=== PATIENT | male | born 1945 | race Hispanic/Latino ===

== ENCOUNTER 2020-10-04 19:01 | Emergency (ER) | payer MEDICAID, SELFPAY ==
--- NOTE | ~2020-10-04 | CT_ITS ---
EXAMINATION: CT thoracic spine wo con DATE: 10/04/2020 21:31 INDICATION: Thoracic back pain. TECHNIQUE: Computed tomography (CT) of the thoracic spine was performed without intravenous contrast. Automated exposure control and iterative reconstruction technique were employed. The dose-length pro duct was 252.84 mGy-cm. COMPARISON: None FINDINGS: There is 4 degrees dextrocurvature of thoracic spine. There are compression fractures of T9 , T11, T12, and L1 with 3/5, 2/5, 1/5, and 3/5 loss of height, respectively. There is mildly decrease d disc height at T8-T9 through T12-L1. There is multilevel mild facet joint osteoarthritis. There is mild neural foraminal stenosis at multiple levels bilaterally. There is moderate neural foraminal brandon nosis bilaterally at T1-T2 and T9-T10 and on the right at T10-T11. There is mild central canal stenos is at T12-L1. IMPRESSION: 1. Compression fractures of T9, T11, T12, and L1, most likely chronic. 2. Moderate thoracic spondylosis. Reviewed, dictated and finalized at location A.
--- NOTE | ~2020-10-04 | CT_ITS ---
EXAMINATION: CT cervical spine wo con DATE: 10/04/2020 21:31 INDICATION: Neck pain. TECHNIQUE: Computed tomography (CT) of the cervical spine was performed without intravenous contrast. Automated exposure control and iterative reconstruction technique were employed. The dose-length pro duct was 125.30 mGy-cm. COMPARISON: None FINDINGS: There is 4 degrees levocurvature of cervical spine. There is kyphosis of cervical spine. Th ere is 2 mm retrolisthesis of C5 on C6 and C6 on C7. Vertebral body heights are normal. There is torsten rely decreased disc height at C5-C6 and C6-C7. The following disc levels are specifically discussed: C2-C3: There is mild bilateral uncovertebral joint osteoarthritis. There is mild bilateral facet join t osteoarthritis. There is no neural foraminal stenosis. There is no central canal stenosis. C3-C4: There is mild right uncovertebral joint osteoarthritis. There is ankylosis of left uncovertebr al joint with mild hypertrophy. There is mild right facet joint osteoarthritis. There is ankylosis of left facet joint with severe hypertrophy. There is mild bilateral neural foraminal stenosis. There i s no central canal stenosis. C4-C5: There is mild bilateral uncovertebral joint osteoarthritis. There is severe bilateral facet sidra int osteoarthritis. There is mild bilateral neural foraminal stenosis. There is no central canal sten osis. C5-C6: There is severe bilateral uncovertebral joint osteoarthritis. There is moderate bilateral face t joint osteoarthritis. There is mild bilateral neural foraminal stenosis. There is mild central masood l stenosis. C6-C7: There is severe bilateral uncovertebral joint osteoarthritis. There is moderate bilateral face t joint osteoarthritis. There is mild right and moderate left neural foraminal stenosis. There is mil d central canal stenosis. C7-T1: There is no uncovertebral joint osteoarthritis. There is moderate right and severe left facet joint osteoarthritis. There is mild bilateral neural foraminal stenosis. There is no central canal st enosis. IMPRESSION: 1. No fracture. 2. Severe cervical spondylosis. Reviewed, dictated and finalized at location A.
--- NOTE | ~2020-10-04 | CT_ITS ---
EXAMINATION: CT brain wo con DATE: 10/04/2020 19:23 INDICATION: Head injury status post fall. Trauma to the forehead. Hematoma. TECHNIQUE: Computed tomography (CT) of the head was performed without intravenous contrast. The dose- length product was 605.33 mGy-cm. Automated exposure control and iterative reconstruction technique w ere employed. COMPARISON: None FINDINGS: There is a left frontal scalp hematoma. Generalized atrophy. There are scattered moderate p eriventricular and subcortical white matter changes, most likely related to small vessel ischemic dis ease (microangiopathy). No ventriculomegaly or midline shift. There is intracranial atherosclerosis. No acute intracranial hemorrhage, infarction, mass or mass effect. No depressed skull fracture. Paran layne sinuses and mastoids are pneumatized. IMPRESSION: 1. No acute intracranial abnormality. 2: Chronic age-related findings. Reviewed, dictated and finalized at location A.
[2020-10-04 19:07] VITALS: BP 107/87; PULSE 113; RESP 18; TEMP 36.5; O2SAT 100
[2020-10-04 21:04] VITALS: BP 136/91; PULSE 94; RESP 20; O2SAT 100
--- NOTE | 2020-10-04 21:06 | PC.NURSE ---
PT HAS LARGE BRUSE TO FORHEAD AND AROUND BOTH EYES AND NOSE ,FELL MONDAY MORNING .
--- NOTE | 2020-10-04 21:13 | ED.HEATRA ---
HPI - Head Injury General Chief complaint: Head Injury Stated complaint: fall, head inj Time Seen by Provider: 10/04/20 20:48 Source: patient Mode of arrival: ambulatory Limitations: no limitations History of Present Illness HPI Narrative: Patient is a 74-year-old male complaining of head pain, neck pain after a fall yesterday. Patient states that he got out of his bed he tripped and hit his face on furniture. Patient denies any loss of consciousness. Patient was able to stand up and ambulate after the fall. Patient denies any chest, abdomen, back, pelvis, hip or any extremity pain/injury. Severity scale (1-10): 6 Quality: dull Radiation: none Other Injuries: none Associated symptoms: denies other symptoms Review of Systems Review of Systems: All systems reviewed & are unremarkable except as noted in HPI and below Constitutional: Constitutional: Denies body ache(s), Denies chills, Denies excessive sweating, Denies fatigue, Denies fever(s), Denies headache(s), Denies lethargy, Denies malaise, Denies weakness and Denies weight loss Eyes: Eyes: Denies blurry vision, Denies change in vision and Denies loss of vision ENT: Denies dizziness, Denies ear discharge, Denies headache(s), Denies lip swelling, Denies epistaxis, Denies nasal congestion, Denies neck pain, Denies throat swelling and Denies tongue swelling Cardiovascular: Cardiovascular: Denies chest pain, Denies chest pain at rest, Denies chest pain with activity, Denies diaphoresis, Denies rapid heart rate, Denies edema, Denies irregular heart rhythm, Denies lightheadedness, Denies palpitations, Denies dyspnea and Denies dyspnea on exertion Respiratory: Respiratory: Denies chest congestion, Denies cough, Denies hemoptysis, Denies dyspnea and Denies dyspnea on exertion Gastrointestinal: Gastrointestinal: Denies abdominal pain, Denies melena, Denies hematochezia, Denies diarrhea, Denies nausea, Denies vomiting and Denies hematemesis Musculoskeletal: Musculoskeletal: Denies abnormal gait, Denies deformity, Denies joint swelling, Denies limited range of motion, Denies neck pain and Denies numbness Neurologic: Denies Abnormal speech present, Denies abnormal gait, Denies confusion, Denies dizziness, Denies focal weakness, Denies loss of vision, Denies numbness, Denies Other visual disturbances, Denies Sensory deficit (Neuro) and Denies weakness Psychiatric: Psychiatric: Denies confusion, Denies depression, Denies auditory hallucinations, Denies homicidal ideation and Denies suicidal ideation Endocrine: Endocrine: Denies cold intolerance, Denies excessive sweating, Denies fatigue, Denies heat intolerance and Denies palpitations Hematologic/Lymphatic: Hematologic/Lymphatic: Denies easy bleeding and Denies easy bruising Allergic/Immunologic: Allergic/Immunologic: Denies lip swelling, Denies throat swelling and Denies tongue swelling [facility] Past Medical History Medical History (Updated 10/04/20 @ 22:05 by Parveen Hoover MD) Acute cervical myofascial strain Comments Past medical history: Diabetes Family history: Noncontributory Social history: Non-smoker no EtOH use lives at home Exam Const: General: cooperative, healthy appearing, comfortable, no acute distress, well developed, alert and awake; No confusion Orientation/consciousness: oriented to person, oriented to place, oriented to time, patient oriented x3 and No confusion Limitations: no limitations HENMT: Head: contusion and hematoma Ears: hearing grossly normal bilaterally, TM normal on the right and TM normal on the left General nose exam: Normal external nose present, Normal nares present and No nasal discharge present Mouth: Yes Normal oral and palatal mucosa present, Yes lip normal, Yes tongue normal and Yes oropharynx normal Throat: posterior oropharynx normal, tonsils normal and uvula midline Other: Frontal head contusion, ecchymosis Eyes: General: appearance normal, both eyes and all related structures Pupils: Equ
[2020-10-04] MEDS: ACETAMINOPHEN 325 MG TABLET 650 MG PO (22:14)
[2020-10-04 23:03] VITALS: BP 128/88; PULSE 89; RESP 18; O2SAT 97
== END 2020-10-04 23:04 | disposition home or self-care (01) ==
PROVIDERS: Emergency Provider Emergency Medicine; PCP Internal Medicine
DX: S16.1XXA Strain of muscle, fascia and tendon at neck level, initial encounter (principal); S09.90XA Unspecified injury of head, initial encounter; E11.9 Type 2 diabetes mellitus without complications; W01.190A Fall on same level from slipping, tripping and stumbling with subsequent striking against furniture, initial encounter
CPT/HCPCS: 70450; 72125; 72128; 99284; A9270